=== PATIENT | female | born 1960 | race Caucasian/White ===

== ENCOUNTER 2025-01-24 02:45 | Day surgery (SDC) | payer OTHER, SELFPAY ==
[2025-01-20 11:33] VITALS: BMI 25.0
--- NOTE | 2025-01-20 11:42 | PC.NURSE ---
Report to the Outpatient Waiting Room, entrance under the green pavilion located off [facility], at time _0930_ on date _[phone]_. Planned Procedure Time: _1130_.? Time changes happen often and if your time is changed the preop area will call you the afternoon before. - You and your visitor will be asked to self-screen and do not enter if you have any COVID symptoms. Please call surgeon if you need to reschedule. - A mask is optional within the hospital at this time. Patients may have clear liquids (water, carbonated beverages, clear teas, apple juice) until 3 hours prior to surgery with a maximum of 20 ounces. - No food from midnight until time of surgery and no smoking, or chewing tobacco (or any form of nicotine). No chewing gum, candy or mints. Take only the following medications with a SIP of water on the morning of surgery: ___None___ DO NOT STOP ANY OF YOUR OTHER PRESCRIPTION MEDICATIONS PRIOR TO SURGERY EXCEPT THE FOLLOWING Hold all vitamins and supplements for 3 days per anesthesiologist. Stop now. Medications to discontinue per physician Date to take last dose____ Please no make-up, nail omani, hairspray, perfume, deodorant, or body powder the day of surgery.? No jewelry (including any body piercings) or valuables the day of surgery, leave them at home.? Please take a shower or bath the night before, or the morning of, surgery with an antibacterial soap.? Wear comfortable, loose fitting clothing.? - Jewelry must be removed prior to entering the operating room.? Rings and piercings that are not removed may be cut off. - The hospital will not accept responsibility for valuables.? - Please leave all valuables, including medications, at home the day of surgery. If you are going home after surgery, a licensed substitute bus driver must drive you home.? - NO public transportation without another adult if you receive anesthesia. - We recommend that an adult stay with you for 24 hours following discharge. - We also recommend that you do not drive, make important decision, drink alcoholic beverages, or take any drugs that were not prescribed by your health care provider for at least 24 hours after your discharge time. Follow any additional instructions given to you from your surgeon. Telephone instructions given to __Deb__and asked if any additional questions and then verbalized understanding. Patient advised to call surgeon office or pre surgery nurse liaison [phone] if any additional questions.
[2025-01-24] VITALS (9 sets, daily range): BP systolic 103–136; BP diastolic 54–71; PULSE 57–83; RESP 12–24; TEMP 36.2–36.6; O2SAT 95–100; BMI 25.5
--- OUTSIDE RECORDS SUMMARY | 2025-01-24 02:48 | XMS_ITS | Encounter Summary ---
Author Organization [facility] Address [address] [place] [address] Care Team Providers Care District Director Name Role Phone Unavailable Primary Care Provider Unavailabl e Encounter Details Date Type Department Care Team (Late st Contact Info) Description 05/24/2024 Lab Requisition [facility] - DermPath Lab [address] [place] [phone] Kathy Saenz MD [address] [id number] Social History Tobacco Use Types Packs/Day Years Used Date Smoking Tobacco: Never Assessed Comments Unknown Sex and Gender Information Value Date Recorded Sex Assigned at Not on file 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 Gender Identity Not on file Sexual Orientation Not on file documented as of this encounter Plan of Treatment Not on file documented as of this encounter Procedures Procedure Name Priority Date/Time Associated Diagnosis Comments DERMATOPATHOLOGY Routine 05/23/2024 12:0 0 AM CDT documented in this encounter Results * DERMATOPATHOLOGY (05/23/2024 12:00 AM CDT) Case Report Dermatopathology Report Case: [id number] Authorizing Provider: Kathy Saenz MD Collected: 05/23/2024 12:00 AM Ordering Location: [facility] - Received: 05/24/2024 07:13 AM DermPath Lab Pathologist: Rosenda Montemayor MD Specimen: Skin, left lower arm 12:30 PM CDT DERMATOPATHOLOGY LABORATORY Final Diagnosis Specimen A. SKIN, left lower arm: SEBORRHEIC KERATOSIS, IRRITATED AND INFLAMED (L82.0) 12:30 PM CDT DERMATOPATHOLOGY LABORATORY at 1230 CDT Clinical History SCCIS 4 12:30 PM CDT DERMATOPATHOLOGY LABORATORY Gross Description Specimen A: Received is one formalin filled container labeled with the patient's name and designated left lower arm. The specimen consists of a shave biopsy measuring 8x6x1 mm. Jar 0. 12:30 PM CDT DERMATOPATHOLOGY LABORATORY Microscopic Description Specimen A. SKIN, left lower arm: Sections show acanthosis, papillomatosis, hyperkeratosis, and squamous eddies. There is a lymphohistiocytic infiltrate within the papillary dermis. 12:30 PM CDT DERMATOPATHOLOGY LABORATORY Disclaimer An external and internal positive and negative controls are appropriate for the histochemical, immunohistochemical and immunofluorescence stain(s) in this case (if any), except where stated explicitly. The performance characteristics of the stain(s) cited in this report were developed and its performance characteristic determined by the Dermatopathology Laboratory at [facility], directed by Dr. Becka Reaves. These tests need not be, and therefore are not, approved by the [place] Food and Drug Administration. The tests are used for clinical purposes. Billing Codes Specimen Charges Stain Charges 33522 1 12:30 PM CDT DERMATOPATHOLOGY LABORATORY Embedded Images 12:30 PM CDT DERMATOPATHOLOGY LABORATORY Pathology/Cytolog y TISSUE SPECIMEN FROM SKIN / Unknown 05/23/2024 05/24/2024 7:13 AM CDT Kathy Saenz MD LAB - PATHOLOGY/CYTOLOGY ORDERAB LES Final Result DERMATOPATHOLOGY LABORATORY [facility] - Department of Dermatology [facility] [address] [place] [address], [address] [place] [address], [facility] [phone] documented in this encounter Visit Diagnoses Not on filedocumented in this encounter
--- OUTSIDE RECORDS SUMMARY | 2025-01-24 02:48 | XMS_ITS | Clinical Summary ---
Author Organization [facility] Address [address] [place] [address] Care Team Providers Care Application Developer Name Role Phone Unavailable Primary Care Provider Unavailabl e Source Comments [facility],non-owned Affiliates and Associated Physician Practices is amultiple site organization consisting of ambulatory clinics and hospital sitesin [place], [place], [place]. This disclosure is being madepursuant to the Care Everywhere program and may not contain all information available regarding this patient. 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 Gender Identity Not on file Sexual Orientation Not on file Plan of Treatment Health Maintenance Due Date Last Done Comments COLOGUARD (AGES 45-75) - COL ON CA SCREENING 1962 COLON MONITORING 1962 COLONOSCOPY - COLON CA SCREENING 1962 CT COLONOGRAPHY - COLON CA SCREENING 1962 Colorectal Cancer Screening 1962 FIT - COLON CA SCREENING 1962 FLEX SIG - COLON CA SCREENING 1962 LIPID TESTING 1962 MAMMOGRAM 1962 HIV SCREENING 1977 HEPATITIS C SCREENING 01/28/1980 DTAP/TDAP/TD VACCINES (1 - Tdap) 1981 PAP SMEAR 1983 PNEUMOCOCCAL VACCINE 50+ (1 of 1 - PCV) 02/02/2012 ZOSTER VACCINE (1 of 2) 02/02/2012 COVID-19 VACCINE ( - 2023-2 5 season) 2024 DEPRESSION SCREENING 07/27/2024 INFLUENZA VACCINE (Season Ended) 2025 Respiratory Syncytial Virus (RSV) Vaccine Pt: or over 60 yrs (1 - 1-dose 75+ series) 2037 HEPATITIS B VACCINE Aged Out No longe r eligible based on patient's age to complete this topic HIB VACCINE Aged Out No longer eligi ble based on patient's age to complete this topic HPV VACCINE Aged Out No longer eligi ble based on patient's age to complete this topic MENINGOCOCCAL (Group B) VACC INE SHARED DECISION-MAKING Aged Out No longer eligibl e based on patient's age to complete this topic MENINGOCOCCAL GROUPS A/C/Y/W VACCINE Aged Out No longer eligible b ased on patient's age to complete this topic Insurance AETNA AETNA
--- OUTSIDE RECORDS SUMMARY | 2025-01-24 02:48 | XMS_ITS | Encounter Summary ---
Author Organization [facility] Address [address] [place] [address] Care Team Providers Care Sap Treasury Consultant Name Role Phone Unavailable Primary Care Provider Unavailabl e Encounter Details Date Type Department Care Team (Late st Contact Info) Description 09/25/2020 Lab Requisition [facility] DermPath Lab [address] [place] [phone] Kathy Saenz MD [address] [place] [address] Social History Tobacco Use Types Packs/Day Years Used Date Smoking Tobacco: Never Assessed Comments Unknown Sex and Gender Information Value Date Recorded Sex Assigned at Not on file 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 Gender Identity Not on file Sexual Orientation Not on file documented as of this encounter Plan of Treatment Not on file documented as of this encounter Procedures Procedure Name Priority Date/Time Associated Diagnosis Comments DERMATOPATHOLOGY Routine 09/21/2020 12:0 0 AM NAIL SETTER documented in this encounter Results * DERMATOPATHOLOGY (09/21/2020 12:00 AM NAIL SETTER) Case Report Dermatopathology Report Case: [id number] Authorizing Provider: Kathy Saenz MD Collected: 09/21/2020 12:00 AM Ordering Location: [facility] DermPath Lab Received: 09/25/2020 09:08 AM Pathologist: Rosenda Montemayor MD Specimen: Skin, left upper back 4:57 PM NAIL SETTER DERMATOPATHOLOGY LABORATORY Final Diagnosis Specimen A. SKIN, left upper back: SUPERFICIAL PORTION OF EPIDERMIS (L98.9) (see microscopic description) 4:57 PM NAIL SETTER DERMATOPATHOLOGY LABORATORY at 1657 NAIL SETTER Clinical History BCC. 4:[address] [facility] DERMATOPATHOLOGY LABORATORY Gross Description Specimen A: Received is one formalin filled container labeled with the patient's name and designated left upper back. The specimen consists of a shave biopsy measuring [id number]. Jar 0. 4:[address] [facility] DERMATOPATHOLOGY LABORATORY Microscopic Description Specimen A. SKIN, left upper back: The specimen samples only stratum corneum and upper portions of cellular epidermis. Only minimal lower epidermis and dermis are available for evaluation. Additional deeper sections were obtained and reviewed. 4:[address] [facility] DERMATOPATHOLOGY LABORATORY Disclaimer An external and internal positive and negative controls are appropriate for the histochemical, immunohistochemical and immunofluorescence stain(s) in this case (if any), except where stated explicitly. The performance characteristics of the stain(s) cited in this report were developed and its performance characteristic determined by the Dermatopathology Laboratory at [facility], directed by Dr. Becka Reaves. These tests need not be, and therefore are not, approved by the [place] Food and Drug Administration. The tests are used for clinical purposes. Billing Codes Specimen Charges Stain Charges 51359 1 4:[address] [facility] DERMATOPATHOLOGY LABORATORY Embedded Images 4:[address] [facility] DERMATOPATHOLOGY LABORATORY Pathology/Cytolog y TISSUE SPECIMEN FROM SKIN / Unknown 09/21/2020 09/25/2020 9:08 AM NAIL SETTER Kathy Saenz MD LAB - PATHOLOGY/CYTOLOGY ORDERAB LES Final Result DERMATOPATHOLOGY LABORATORY [facility] - Department of Dermatology [address], [address] [phone] documented in this encounter Visit Diagnoses Not on filedocumented in this encounter
--- OUTSIDE RECORDS SUMMARY | 2025-01-24 02:49 | XMS_ITS | Clinical Summary ---
Author Organization [facility] Address [address] [place] [address] Care Team Providers Care Fly Worker Name Role Phone Patient, None Per Primary Care Provider Unavaila ble Source Comments This disclosure is being made pursuant to the [employer] program and maynot contain all information available regarding this patient.[facility] Allergies Active Allergy Reactions Criticality Noted Date Comments Sulfa Antibiotics Hives High 11/06/2015 Medications Multiple Vitamin (Multi-Vitamin Daily) TABS Take 1 tablet by mouth daily. Active fluticasone (Flonase Sensimist) 27.5 MCG/SPRAY nasal spray 2 sprays by Nasal route daily as needed. to each nostril Active triamcinolone acetonide (NASACORT ALLERGY) nasal inhaler 2 sprays by Nasal route daily as needed. to each nostril Active fexofenadine (JENNIFER) 180 MG tablet Take 180 mg by mouth daily as needed. Active cetirizine (ZYRTEC) 10 MG tablet Take 10 mg by mouth daily as needed. Active Active Problems No known active problems Resolved Problems Problem Noted Date Diagnosed Date Resolved Date Synovitis and tenosynovitis, unspecified 12/12/2015 02/28/2016 Left hand weakness 12/12/2015 6 Wrist pain, left 12/12/2015 02/28/2016 Encounters Date Type Department Care Team Description 10/26/2024 8:45 AM CDT Office Visit [facility] [address] [place] [address] Kathy Saenz MD Screening for malignant neoplasm of skin (Primary Dx); Diffuse photodamage of skin; Nevus; Olivera angioma; Seborrheic keratoses 10/25/2024 Travel from Last 3 Months Immunizations Immunization Administration Dates Next Due COVID-19 (MODERNA) mRNA ages 12+ 09/06/2020,07/27 Influenza, inactivated, quad rivalent, 3 years and older, single dose syringe/vial 05/01/2020,05/03/2019 Influenza, unspecified formulation 04/28,04/22/2017,04/14/2017,2015,04/25/2015,04/16/2014,04/17/2013,1 LIVE Zoster (Zostavax) ZVL 12/30/2013 Tdap 05/16/2008 Zoster (Shingrix) RZV 05/25/2020,03/23/2020 Family History Medical History Relation Name Comments Alcohol abuse Father Prostate cancer Father Skin cancer Mother Other Other Alcoholism - Al l Family: Noted on 2007-05-07 09:08:34 Relation Name Status Comments Father (Age 59) Mother Other Social History Tobacco Use Types Packs/Day Years Used Date Smoking Tobacco: Never Smokeless Tobacco: Never Tobacco Cessation:Counseling Given: No Alcohol Use Standard Drinks/Week Comments Yes 0 (1 standard drink = 0.6 oz pur e alcohol) PHQ-2 Answer Date Recorded PHQ-2 Total Score 0 10/26/2024 Comments No Sex and Gender Information Value Date Recorded Sex Assigned at Not on file Legal Sex Female 2:33 PM CDT Gender Identity Not on file Sexual Orientation Not on file Last Filed Vital Signs Vital Sign Reading Time Taken Comments Blood Pressure 118/76 08/23/2021 4:17 PM SWITCH FOREMAN Pulse 72 08/23/2021 4:17 PM SWITCH FOREMAN Temperature 36.3 C (97.4 F) 08/23/2021 4:17 PM SWITCH FOREMAN Respiratory Rate 16 08/23/2021 4:17 PM SWITCH FOREMAN Oxygen Saturation 98% 08/23/2021 4:17 PM SWITCH FOREMAN Inhaled Oxygen Concentration - - Weight 69.9 kg (154 lb) 01/23/2020 11:37 AM CDT Height 165.1 cm (5' 5) 04/03/2017 8:48 AM CDT Body Mass Index 25.63 04/03/2017 8:48 AM CDT Plan of Treatment Upcoming Encounters Date Type Department Care Team (Late st Contact Info) Description 10/30/2025 9:30 AM CDT Appointment [facility] D[facility]ology [address] [place] [address] Kathy Saenz MD [address] [place] [address] Health Maintenance Due Date Last Done Comments CT Colonography 1962 Cervical Cancer Screening 1962 Fecal DNA Test 1962 HPV 1962 Lab-Cholesterol Screening 1962 Lab-Hepatitis C Screening 1962 Sigmoidoscopy 1962 FOBT/FIT 1982 Pap Smear 1983 Pneumococcal Vaccines 50+ (1 of 1 - PCV) 02/02/2012 Tetanus/Pertussis Vaccine Teen/Adult (2 - Td or Tdap) 05/16/2018 05/16/2008 Breast Cancer Screening-Mammogram 02/22/2023 02/22/2021, 10/12/2017, 08/13/2016, Additional history exists Colonoscopy 03/30/2023 03/30/2013 Colorectal Cancer Screening 03/30/2023 Annual Wellness Visit 10/26/2025 10/26/2024, 024 RSV Adult (1 - 1-dose 75+ series) 2037 Zoster (Shingles) Vaccine 50+ Completed 05/25/2020, 03/23/2020, 12/30/2013 COVID-19 Vaccine Completed 04/07/2024, , 03/04/2023, Additional history exists Influenza Vaccine Completed 04/07/2024, , 04/20/2022, Additional history exists HIB Vaccine Aged Out No longer eligi ble based on patient's age to complete this topic HPV Vaccine (F:9-26YO,M: 9-22) Aged Out No longer eligible based on patient's age to complete this topic Hepatitis A Vaccine Aged Out No longe r eligible based on patient's age to complete this topic IPV Vaccine Aged Out No longer eligi ble based on patient's age to complete this topic Meningococcal Conjugate Vaccine Aged Out No longer eligible based on patient's age to complete this topic RSV < 20 Months Aged Out No longer el igible based on patient's age to complete this topic Procedures Procedure Name Priority Date/Time Associated Diagnosis Comments MM DIGITAL BILATERAL SCREENI NG MAMMOGRAM Routine 02/22/2021 HM COLONOSCOPY Routine 03/30/2013 from Last 3 Months or Most Recently Relevant to Health Maintenance Results * MM Digital Bilateral Screening Mammogram (02/22/2021) Anatomical Region Laterality Modality Breast Bilateral Mammography us Not In System Provider IMG MAMMOGRAPHY ORDERABLE S Final Result * HM COLONOSCOPY (03/30/2013) us Not In System Provider HEALTH MAINTENANCE Final Result from Last 3 Months or Most Recently Relevant to Health Maintenance Insurance [facility] [id number] Care Teams Fly Worker Relationship Specialty Start Date End Date Patient, None Per PCP - General 08/23/21
--- OUTSIDE RECORDS SUMMARY | 2025-01-24 02:49 | XMS_ITS | Encounter Summary ---
Author Organization [facility] Address [address] [place] [address] Care Team Providers Care Underwriting Clerk Name Role Phone Unavailable Primary Care Provider Unavailabl e Encounter Details Date Type Department Care Team (Late st Contact Info) Description 10/02/2020 Lab Requisition [facility] DermPath Lab [address] [place] [phone] Kathy Saenz MD [address] [place] [address] Social History Tobacco Use Types Packs/Day Years Used Date Smoking Tobacco: Never Assessed Comments Unknown Sex and Gender Information Value Date Recorded Sex Assigned at Not on file 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 Gender Identity Not on file Sexual Orientation Not on file documented as of this encounter Plan of Treatment Not on file documented as of this encounter Procedures Procedure Name Priority Date/Time Associated Diagnosis Comments DERMATOPATHOLOGY Routine 09/28/2020 12:0 0 AM FLY FINISHER documented in this encounter Results * DERMATOPATHOLOGY (09/28/2020 12:00 AM FLY FINISHER) Case Report Dermatopathology Report Case: [id number] Authorizing Provider: Kathy Saenz MD Collected: 09/28/2020 12:00 AM Ordering Location: [facility] DermPath Lab Received: 10/02/2020 07:58 AM Pathologist: Rosenda Montemayor MD Specimen: Skin, left upper back 4:03 PM FLY FINISHER DERMATOPATHOLOGY LABORATORY Final Diagnosis Specimen A. SKIN, left upper back: ACTINIC KERATOSIS, ACANTHOLYTIC TYPE (L57.0) (see microscopic description) 4:03 PM FLY FINISHER DERMATOPATHOLOGY LABORATORY at 1603 FLY FINISHER Clinical History BCC. 4:03 PM [facility] DERMATOPATHOLOGY LABORATORY Gross Description Specimen A: Received is one formalin filled container labeled with the patient's name and designated left upper back. The specimen consists of a shave biopsy measuring [id number]. Jar 0. 4:03 PM [facility] DERMATOPATHOLOGY LABORATORY Microscopic Description Specimen A. SKIN, left upper back: There is focal parakeratosis. The lower half of the epidermis shows disorderly maturation of keratinocytes with nuclear pleomorphism. Focally there is a suprabasilar cleft with acantholytic cells. Additional deeper sections were obtained and reviewed. 4:03 PM [facility] DERMATOPATHOLOGY LABORATORY Disclaimer An external and internal positive and negative controls are appropriate for the histochemical, immunohistochemical and immunofluorescence stain(s) in this case (if any), except where stated explicitly. The performance characteristics of the stain(s) cited in this report were developed and its performance characteristic determined by the Dermatopathology Laboratory at [facility], directed by Dr. Becka Reaves. These tests need not be, and therefore are not, approved by the [place] Food and Drug Administration. The tests are used for clinical purposes. Billing Codes Specimen Charges Stain Charges 49938 1 4:03 PM [facility] DERMATOPATHOLOGY LABORATORY Embedded Images 4:03 PM [facility] DERMATOPATHOLOGY LABORATORY Pathology/Cytolog y TISSUE SPECIMEN FROM SKIN / Unknown 09/28/2020 10/02/2020 7:58 AM FLY FINISHER Kathy Saenz MD LAB - PATHOLOGY/CYTOLOGY ORDERAB LES Final Result DERMATOPATHOLOGY LABORATORY [facility] - Department of Dermatology [address] [place] [address], [facility] [phone] documented in this encounter Visit Diagnoses Not on filedocumented in this encounter
--- NOTE | 2025-01-24 07:11 | WPDHPUPDATE1 ---
History and Physical Update Update Date/Time: 01/24/25 07:11 History and Physical has been reviewed, including an updated exam of the patient. There are NO changes in the patient's condition. Risks, benefits, and alternatives have been discussed and questions answered. Patient agrees to proceed with procedure.
--- NOTE | 2025-01-24 08:01 | P.PNAN_ITS ---
Anes - Initial Pre Proc Eval Procedure: Operation Date: 01/24/25 08:30 Proposed Procedures p Bilateral Breast Implant Exchange - Pasha Cadet MD Date/Time: 01/24/25 08:01 Surgeon: Pasha Cadet MD Pre Op Diagnosis: hx of breast augmentation Patient Data Age: 64 Gender: F Height: 1.65 m Weight: 68.2 kg Allergies Allergy/AdvReac Type Severity Reaction Status Date / Time Sulfa (Sulfonamide Allergy Severe Difficulty Verified 01/24/25 07:50 Antibiotics) Breathing Home Medications ?Medication ?Instructions ?Recorded ?Confirmed ?Type multivitamin (Daily Multi-Vitamin 1 tablet PO DAILY 01/20/25 01/20/25 History tablet) vitamin A-vitamin C-vit E-min 1 tablet PO DAILY 01/20/25 01/20/25 History tablet (Ocutabs tablet) Patient hx anesthesia problems: none Family hx anesthesia problems: none Results Review: All pre-operative results and documents have been reviewed as part of the pre- operative evaluation. [facility] Social History Social History Smoking status: Never smoker Alcohol intake: current Living arrangements: with family Spiritual care concerns: No Anes - Eval Final PreProcedure Day of Procedure 01/24/25 08:01 Patient weight: normal Heart: regular rate and rhythm Lungs: clear to auscultation Airway: Mallampati scale class II Neurological: alert and oriented Last oral intake: >/= 8 hours ASA classification: I Emergent: no Anesthetic plan: proceed Anesthesia type and monitoring: general LMA and standard monitoring Results Review: All pre-operative results and documents have been reviewed as part of the pre- operative evaluation. Informed Consent: The patient's anesthetic plan and its attendant risks and benefits were discussed with the patient/family/POA. Questions were solicited and answers provided to the satisfaction of the patient/family/POA.
[2025-01-24] MEDS: TRANEXAMIC ACID 1,000MG/ISO100 1,000 MG/100 ML BAG 200 MG IVPB (08:04)
[2025-01-24] MEDS: LACTATED RINGERS 1,000 ML 30 ML IV CONT ×2 (08:12→10:10)
[2025-01-24] MEDS: LIDO 1%/EPINEPHRINE 1:100,000 20 ML VIAL 30 ML INFILTRATE (08:49)
[2025-01-24] MEDS: NACL 0.9% IRRIG POUR BOTTLE 900 ML, GENTAMICIN SULFATE INJ 160 MG, ceFAZolin 2 GM, POVI... IRRIGATION (08:49)
[2025-01-24] MEDS: ceFAZolin 2 GM/D5W 50 ML 2 GM/50 ML BAG IVPB (08:49)
--- NOTE | 2025-01-24 09:49 | W.PM.PROC2 ---
Procedure Note - Detailed Date of Procedure 01/24/25 Pre-op Diagnosis hx of breast augmentation Post-op Diagnosis Same Procedure Performed Bilateral breast implant exchange Surgeon Pasha Cadet MD Anesthesia General Findings Previous implants: Right: 325cc textured. Ruptured Left: 250cc textured. Intact No worrisome features New implants: Bilateral Natrelle Saline Right: REF# [id number] SN: [id number] filled to 345cc Left: REF# [id number] SN: [id number] filled to 270cc Description of Procedure Preoperatively the risks, benefits, alternatives were discussed in extensive detail. I wanted to be very realistic about the risks involved as well as expectations. I was clear about how we could actually make her worse. Answered all questions to satisfaction. Voiced a clear understanding. Consent obtained. She was taken the operating room placed supine on the operating room table. Anesthesia provided by anesthesiology and prepped and draped in a standard sterile fashion. Surgical time-out was taken. 1% lidocaine and 0.25% Marcaine with epinephrine was used to provide a field block. Tegaderm nipple ovalles were placed. Fifteen blade used to create IMF incisions (she elected this approach). Dissection was continued down until the capsules were identified and entered (findings as above). Implants removed. I then copiously irrigated with 3 L of saline solution on TUR tubing. Verified strict hemostasis. I then irrigated with Betadine containing solution. On the back table the implants were prepared. All air removed. Introduced into the pocket and filled to the volumes as above utilizing a universal fill kit. This was closed with 2-0 PDS followed by 3-0 Monocryl and a running subcuticular 4-0 Monocryl followed by tissue glue. Dressings were placed. She was woken taken to the PACU without difficulty. All instrument sponge counts were correct at the end of the case. Estimated Blood Loss 20 Drains No Packing No Pathology None sent Complications No immediate complications Condition Stable Disposition PACU
[2025-01-24] MEDS: HYDROmorphone HCL INJ (*CRX) 1 MG/ML SYR 0.5 MG IV PUSH ×2 (10:13→10:36)
== END 2025-01-24 12:10 | disposition home or self-care (01) ==
PROVIDERS: Visit Provider Surgery Plastic and Reconstructive Surgery
PROC: (CPT 19330; principal; 2025-01-24 08:30)
DX: T85.41XA Breakdown (mechanical) of breast prosthesis and implant, initial encounter (principal); Y83.8 Other surgical procedures as the cause of abnormal reaction of the patient, or of later complication, without mention of misadventure at the time of the procedure
CPT/HCPCS: 19330; 19328; 19325; J0690; J1171; J1580; J2003; J2004; J2250; J2704; J3010; J7120